=== PATIENT | male | born 1945 | race African-American/Black ===

== ENCOUNTER 2016-10-08 07:03 | Day surgery (SDC) | payer OTHER, MEDICAID ==
[2016-10-08] MEDS ORDERED: NS 500 ML IV 500 ML IV ONE (07:16)
[2016-10-08] MEDS: TETRACAINE 0.5% OPHTH 1 DOSE AFFEYE ONE ×2 (07:30→09:20)
[2016-10-08] MEDS: VIGAMOX 0.5% OPHTH 1 DOSE AFFEYE ONE ×3 (07:35→09:34)
[2016-10-08] MEDS ORDERED: VIGAMOX 0.5% OPHTH 1 DOSE AFFEYE ONE ×2 (07:40→07:45)
[2016-10-08] MEDS ORDERED: PROLENSA OPHTH 1 DOSE AFFEYE ONE (07:46)
[2016-10-08] MEDS ORDERED: ALPHAGAN-P OPHTH 1 DOSE AFFEYE ONE (07:47)
[2016-10-08] MEDS ORDERED: AK-DILATE 2.5% OPHTH 1 DOSE OP ONE ×3 (07:48→07:50)
[2016-10-08] MEDS ORDERED: CYCLOGYL 1% OPHTH 1 DOSE OP ONE ×3 (07:48→07:50)
[2016-10-08] MEDS ORDERED: MYDRIACIL OPHTH 1 DOSE AFFEYE ONE ×3 (07:48→07:50)
[2016-10-08] MEDS ORDERED: BETADINE OPHTH SOLN 5% EACHEYE ONE (09:20)
[2016-10-08] MEDS ORDERED: ADRENALINE CHL INJ IJ ONE (09:22)
[2016-10-08] MEDS ORDERED: DUOVISC IO ONE (09:22)
[2016-10-08] MEDS ORDERED: BSS OPHTH (PLAIN) 500 ML with VANCOMYCIN HCL 500 MG VIAL 25 MG, ADRENALINE CHL INJ 1 MG IR ONE ×3 (09:22)
[2016-10-08] MEDS ORDERED: XYLOCAINE-MPF 1% IJ ONE (09:22)
[2016-10-08 11:21] VITALS: BP 190/92
== END 2016-10-08 10:05 | disposition home or self-care (01) ==
LOC: SURG1 07:03
PROVIDERS: ATTEND Ophthalmology
PROC: 08RJ3JZ Replacement of Right Lens with Synthetic Substitute, Percutaneous Approach (ICD-10-PCS; principal; 2016-10-08 07:30)
PROC: 08DJ3ZZ Extraction of Right Lens, Percutaneous Approach (ICD-10-PCS; principal; 2016-10-08 07:30)
DX: H25.11 Age-related nuclear cataract, right eye (principal); H25.011 Cortical age-related cataract, right eye
CPT/HCPCS: A4217; J0170; J3370

== ENCOUNTER 2016-10-22 09:21 | Day surgery (SDC) | payer OTHER, MEDICAID ==
[2016-10-22] MEDS ORDERED: NS 500 ML IV 500 ML IV ONE (09:53)
[2016-10-22] MEDS ORDERED: TETRACAINE 0.5% OPHTH 1 DOSE AFFEYE ONE ×4 (10:11→14:04)
[2016-10-22] MEDS ORDERED: VIGAMOX 0.5% OPHTH 1 DOSE AFFEYE ONE ×5 (10:12→14:17)
[2016-10-22] MEDS ORDERED: PROLENSA OPHTH 1 DOSE AFFEYE ONE (10:22)
[2016-10-22] MEDS ORDERED: MYDRIACIL OPHTH 1 DOSE AFFEYE ONE ×2 (10:23→10:25)
[2016-10-22] MEDS ORDERED: CYCLOGYL 1% OPHTH 1 DOSE OP ONE ×2 (10:23→10:24)
[2016-10-22] MEDS ORDERED: AK-DILATE 2.5% OPHTH 1 DOSE OP ONE ×2 (10:23→10:24)
[2016-10-22] MEDS ORDERED: ALPHAGAN-P OPHTH 1 DOSE AFFEYE ONE (10:23)
[2016-10-22] MEDS ORDERED: BETADINE OPHTH SOLN 5% EACHEYE ONE (13:50)
[2016-10-22] MEDS ORDERED: ADRENALINE CHL INJ IJ ONE ×2 (13:51→14:04)
[2016-10-22] MEDS ORDERED: DUOVISC IO ONE ×2 (13:52→14:04)
[2016-10-22] MEDS ORDERED: XYLOCAINE-MPF 1% IJ ONE ×2 (13:52→14:04)
[2016-10-22] MEDS ORDERED: BSS OPHTH (PLAIN) 500 ML with VANCOMYCIN HCL 500 MG VIAL 25 MG, ADRENALINE CHL INJ 1 MG IR ONE ×6 (13:56)
[2016-10-22 15:17] VITALS: BP 146/78
== END 2016-10-22 14:45 | disposition home or self-care (01) ==
LOC: SURG1 09:21
PROVIDERS: ATTEND Ophthalmology
PROC: 08RK3JZ Replacement of Left Lens with Synthetic Substitute, Percutaneous Approach (ICD-10-PCS; principal; 2016-10-22 21:15)
PROC: 08DK3ZZ Extraction of Left Lens, Percutaneous Approach (ICD-10-PCS; principal; 2016-10-22 21:15)
DX: H25.12 Age-related nuclear cataract, left eye (principal); H25.012 Cortical age-related cataract, left eye
CPT/HCPCS: A4217; J0170; J3370